=== PATIENT | female | born 1960 | race Caucasian/White ===

== ENCOUNTER → 2016-09-03 | Outpatient (CLI) | payer OTHER | LOC: RAD 08:49 | PROVIDERS: ATTEND Physician Assistant | DX: M48.06 Spinal stenosis, lumbar region (principal) | CPT/HCPCS: 72148 ==

== ENCOUNTER 2018-09-27 10:20 | Day surgery (SDC) | payer OTHER ==
[~2018-09-27 10:20] MED LIST: PROPOFOL INJ 200 MG/20 ML VIAL IV ONE
[2018-09-27 12:27] VITALS: BP 138/79
--- NOTE | 2018-09-27 12:30 | Operative Report ---
Operative Report DATE OF SURGERY: 09/27/18 Operative Report: The risks, benefits and alternatives of the procedure including the risk of bleeding, perforation requiring surgery have been explained to the patient in detail and informed consent was obtained. Patient is placed in the left, lateral decubital position. Timeout was called. Propofol medication is administered. A rectal examination is done which did not reveal any masses, tears or fissures. An Olympus videoscope was introduced into the patient's rectum. The scope was then carefully advanced all the way to the cecum. The cecum was identified by the usual anatomical landmarks including the ileocecal valve as well as the appendiceal office. Photodocumentation is obtained. The scope was then sequentially pulled back via the various segments of the colon including the ascending colon, hepatic flexure, transverse colon, splenic flexure, descending colon and finally into the rectosigmoid portions of the colon. Retroflexion maneuver is performed. PREOPERATIVE DIAGNOSIS: Abnormal CT scan possible colitis POSTOPERATIVE DIAGNOSIS: Random biopsies taken in the terminal ileum rule out Crohn's disease. Right colon biopsy biopsies to rule out lymphocytic, microscopic, collagenous colitis. Internal hemorrhoids. There does not appear to be colitis noted with the CT scan read the previous study OPERATION: Colonoscopy with biopsy SURGEON: LING LESLIE ANESTHESIA: LMAC TISSUE REMOVED OR ALTERED: As noted above. COMPLICATIONS: None. ESTIMATED BLOOD LOSS: None. INTRAOPERATIVE FINDINGS: None. PROCEDURE: Patient tolerated the procedure well. No immediate postprocedure complications are noted. Patient discharged in good condition. Discharge date 09/27/2018. Discharge diet: Regular. Discharge activity: Regular. 2-3-week follow-up to discuss findings. Patient is instructed to call the office or proceed to the emergency room should there be any further problems or questions. Wait on the pathology. Patient is cleared to go back to work tomorrow.
== END 2018-09-27 12:10 | disposition home or self-care (01) ==
LOC: END 10:20
PROVIDERS: ATTEND Internal Medicine Gastroenterology
DX: K64.8 Other hemorrhoids (principal); R93.3 Abnormal findings on diagnostic imaging of other parts of digestive tract
CPT/HCPCS: 45380; 88305 ×2; J2704; 811

== ENCOUNTER → 2018-11-04 | Outpatient (CLI) | payer OTHER ==
--- NOTE | 2018-11-04 19:16 | RADIOLOGY REPORT (SQ) ---
EXAM DESCRIPTION: MRI LUMBAR SPINE WITHOUT COMPLETED DATE/TIME: 11/04/2018 6:22 pm REASON FOR STUDY: M54.32 SCIATICA , LEFT SIDE M54.32 SCIATICA, LEFT SIDE COMPARISON: MRI lumbar spine 09/03/2016 TECHNIQUE: Sagittal and Axial imaging includes T1, T2, STIR and gradient echo sequences. Coronal T2/ HASTE imaging. LIMITATIONS: None. FINDINGS: VISUALIZED UPPER ABDOMEN: Limited evaluation. No acute or suspicious findings suggested. SEGMENTATION: No transitional anatomy. The lowest well-developed disc space is labeled L5-S1. ALIGNMENT: Anatomic. VERTEBRAE: Intact. BONE MARROW: Mild fatty degenerative vertebral body endplate changes anteriorly at L1-2 and L4-5 DISC SIGNAL: Diffuse decreased T2 weighted intervertebral disc signal. Disc space loss of height at L4-5 POSTERIOR ELEMENTS: Generally intact. No pars defect evident. HARDWARE: None in the spine. CORD AND CONUS: Normal in size and signal intensity. Conus at the L1-2 level. SOFT TISSUES: No aortic aneurysm seen. No bulky retroperitoneal adenopathy or mass. No paraspinal mas s or fluid. T11-12: Mild facet hypertrophy. No central or foraminal stenosis T12-L1: Mild facet hypertrophy. No central or foraminal stenosis. L1-L2: Minimal posterior disc bulging, mild bilateral facet hypertrophy. No central or foraminal willis nosis L2-L3: Moderate diffuse posterior disc bulging and mild facet and ligament hypertrophy cause borderli ne central canal narrowing best shown on axial T2 image 10. There is mild bilateral L2-3 foraminal n arrowing without exiting L2 nerve root impingement. L3-L4: Mild diffuse posterior disc bulging, moderate bilateral facet hypertrophy. Borderline central canal stenosis best shown on axial T2 image 16. There is mild bilateral inferior foraminal narrowin g at L3 without exit L3 nerve root impingement. L4-L5: Broad diffuse posterior disc bulge, moderate bilateral facet and ligament hypertrophy. Border line central canal narrowing best shown on axial T2 image 22. There is mild to moderate bilateral in ferior foraminal narrowing without exiting L4 nerve root impingement. L5-S1: Mild diffuse posterior disc bulging and mild bilateral facet hypertrophy. No central or jr inal stenosis. SACRUM: Visualized upper sacrum intact. OTHER: No other significant findings. IMPRESSION: Mild diffuse degenerative disc changes as above TECHNICAL DOCUMENTATION: JOB ID: [id number]- All Rights Reserved Reading location - IP/workstation name: [email or web address]
== END ==
LOC: RAD 17:39
PROVIDERS: ATTEND Physician Assistant
DX: M51.16 Intervertebral disc disorders with radiculopathy, lumbar region (principal)
CPT/HCPCS: 72148

== ENCOUNTER 2019-02-04 07:03 | Emergency (ER) | payer OTHER ==
--- NOTE | 2019-02-04 08:46 | ER Document Report ---
HPI - HPI Time Seen by Provider: 02/04/19 08:25 Pain Level: Denies Notes: Patient is a 58-year-old female no significant past medical history aside from gastritis who presents complaining of dry mouth more so when she wakes up in the morning after sleeping. Patient states that she has had some trouble breathing through her nose recently as well. Patient states that symptoms overall been ongoing for 1 to 2 weeks. She was evaluated by her family doctor this past week and was placed on Flonase. Patient states that she does have an appointment next week again for follow-up. She has been able to eat and drink without difficulty. She is urinating normally. Denies drug allergies. Patient is a former smoker. Denies any headache, fever, neck pain, changes in vision/speech/mentation/hearing, sore throat, chest pain, palpitations, syncope, cough, shortness of breath, wheeze, dyspnea, abdominal pain, nausea/vomiting/diarrhea, urinary retention, dysuria, hematuria, or rash. - ROS Systems Reviewed and Negative: Yes All other systems reviewed and negative Past Medical History - Social History Smoking Status: Former Smoker Chew tobacco use (# tins/day): No Frequency of alcohol use: None Drug Abuse: None Family History: Reviewed & Not Pertinent Patient has suicidal ideation: No Patient has homicidal ideation: No - Past Medical History Cardiac Medical History: Denies: Hx Coronary Artery Disease, Hx Heart Attack, Hx Hypertension Pulmonary Medical History: Denies: Hx Asthma, Hx Bronchitis, Hx COPD, Hx Pneumonia Neurological Medical History: Denies: Hx Cerebrovascular Accident, Hx Seizures Renal/ Medical History: Denies: Hx Peritoneal Dialysis Musculoskeletal Medical History: Denies Hx Arthritis Past Surgical History: Reports: Hx Hysterectomy - Immunizations Hx Diphtheria, Pertussis, Tetanus Vaccination: No Vertical Provider Document - CONSTITUTIONAL Agree With Documented VS: Yes Notes: PHYSICAL EXAMINATION: GENERAL: Well-appearing, well-nourished and in no acute distress. A&Ox4. Answers questions appropriately. Moves comfortably w/o notable distress HEAD: Atraumatic, normocephalic. EYES: Pupils equal round and reactive to light, extraocular movements intact, sclera anicteric, conjunctiva are normal. ENT: EAC clear b/l. TM's intact b/l without erythema, fluid, or perforation. Nares patent and without discharge. oropharynx no erythema without exudates. No tonsilar hypertrophy without erythema or exudate. No palatine shift. Uvula midline. No tongue protrusion. No drooling, hoarseness, or airway compromise. Moist mucous membranes. Pt is actively placing spit into her fingers (clear) and showing me. No cracked lips. No sinus tenderness. NECK: Normal range of motion, supple without lymphadenopathy. No rigidity/meningismus. LUNGS: Breath sounds clear to auscultation bilaterally and equal. No wheezes rales or rhonchi. No retractions HEART: Regular rate and rhythm without murmurs, rubs, gallops. ABDOMEN: Soft, nontender, nondistended abdomen. No guarding, no rebound. Normal bowel sounds present. No CVA tenderness bilaterally. NEUROLOGICAL: Normal speech, normal gait. PSYCH: Normal mood, normal affect. SKIN: Warm, Dry, normal turgor, no rashes or lesions noted. - INFECTION CONTROL TRAVEL OUTSIDE OF THE [place] IN LAST 30 DAYS: No Course - Re-evaluation Re-evalutation: 02/04/19 08:44 I did review with Dr. Gar who is in agreement with disposition and plan: Patient is an afebrile, well-hydrated, 58-year-old female who presents with nasal congestion and what I believe to be secondary dry mouth. I have reviewed with patient that if she is having any congestion in her nose she is going to be mouth breathing at night that could be causing the dry mouth. Patient on exam does not have any evidence of dry mouth at this time and is constantly producing saliva. Vitals are acceptable without significant tachycardia, tachypnea, or hypoxia. PE is otherwise unremarkable. Patient is nontoxic-appearing and is able to tolerate p.o. without difficultly. Patient is already on Flonase and has been using nasal saline. There is no evidence for bacterial infection. Low suspicion for any meningitis, sepsis, peritonsillar/pharyngeal abscess, respiratory compromise, severe dehydration, or other emergent systemic condition at this time. Patient is aware this condition can change from initial presentation and she needs to monitor symptoms closely. Conservative measures otherwise for symptoms. Recheck with your PCM in 3-5 days. Schedule appointment with ENT for further evaluation. Return to the ED with any worsening/concerning symptoms otherwise as reviewed in discharge. Patient is in agreement. - Vital Signs Vital signs: Temp Pulse Resp BP Pulse Ox 97.8 F 97 18 149/89 H 98 02/04/19 07:06 02/04/19 07:06 02/04/19 07:06 02/04/19 07:06 02/04/19 07:06 Discharge - Discharge Clinical Impression: Nasal congestion Condition: Stable Disposition: HOME, SELF-CARE Instructions: Dentist Additional Instructions: Maintain adequate fluid intake Humidified air may help Nasal saline, continue your nasal steroid spray Avoid stimulants (i.e. coffee, etc) You may continue sucking on hard candies See a dentist for evaluation as well Wash your hands regularly F/u: with your PCM in 3-5 days for a recheck Schedule an appointment with ENT for further evaluation and management Return to the ED with any fever, altered mental status/behavior, chest pain, palpitations, syncope, headache, neck pain/stiffness, shortness of breath, chest pains, wheezing, drooling, trouble swallowing/breathing, abdominal pain, n/v/d, rash, or worsening/concerning symptoms otherwise. Referrals: DIPTI CHAMBERS MD [Primary Care Provider] - Follow up as needed ROSI RUFFIN DO [ASSOCIATE] - Follow up in 3-5 days
[2019-02-04 09:05] VITALS: BP 135/77
== END 2019-02-04 09:05 | disposition home or self-care (01) ==
LOC: ER 07:03
DX: R09.81 Nasal congestion (principal); Z90.710 Acquired absence of both cervix and uterus
CPT/HCPCS: 99283